=== PATIENT | female | born 1960 | race Caucasian/White ===

== ENCOUNTER → 2024-12-20 | Outpatient (CLI) | payer MEDICARE, MEDICAID ==
[~2024-12-20] MED LIST: AMAN100T PO; AMI2 MT; AMI2 PO; APIX5TAB PO; ARIP5TAB51 PO; ATOR10TA69 PO; BACL-141 PO; CARB-324 PO; GABA-529 PO; METO-539 PO; SENN-362 PO; TRIH2TAB3 PO
== END | disposition home or self-care (01) ==
LOC: MAMMO 10:05
PROVIDERS: ATTEND Internal Medicine
DX: N60.01 Solitary cyst of right breast (principal); N60.02 Solitary cyst of left breast; R92.1 Mammographic calcification found on diagnostic imaging of breast; R92.323 Mammographic fibroglandular density, bilateral breasts
CPT/HCPCS: 76642; 77062; 77066; G0279